=== PATIENT | female | born 2000 | race Caucasian/White ===

== ENCOUNTER 2019-04-02 12:25 | Inpatient (IN) ==
[2019-04-02] MEDS ORDERED: ONDANSETRON INJ 2 MG/ML 2 ML VIAL ONE (13:34)
[2019-04-02 13:36] LABS: Hematocrit (blood only) 30.1 % (37-47); Hemoglobin 9.6 g/dL (12.0-16.0); Mean Corpuscular Hemoglobin 26.2 pg (25-34); Mean Corpuscular Hgb Conc 31.9 g/dL (32-36); Mean Platelet Volume 8.7 fL (7.4-10.4); Platelet Count 369 K/uL (130-400); RDW Coefficient of Variation 14.8 % (11.5-14.5); RDW Standard Deviation 44.5 fL (36.4-46.3); Red Blood Count 3.67 M/uL (4.2-5.4); White Blood Count 15.18 K/uL (4.8-10.8)
[2019-04-02 13:40] LABS: Appearance Urine Cloudy (Clear); Bacteria Urine Automated Negative (Negative); Blood Urine Negative (Negative); Color Urine Dark Yellow; Epithelial Cell Urine Auto >30 /lpf (0-5); Glucose Urine UA Negative (Negative); Ketones Urine Trace (Negative); Leukocyte Esterase Urine Negative (Negative); Nitrite Urine Negative (Negative); Protein Urine Trace (Negative); Specific Gravity Urine 1.029 (1.000-1.030); Urobilinogen Urine Negative (Negative); pH Urine 5.5 (4.5-7.5)
[2019-04-02] MEDS ORDERED: SODIUM CHLORIDE 0.9% 1000ML 1,000 ML IV ONE ×2 (13:45→14:29)
[2019-04-02] MEDS: ONDANSETRON INJ 2 MG/ML 2 ML VIAL IV STA ×2 (13:46)
[2019-04-02 13:54] LABS: Bilirubin Urine Negative (Negative); Ictotest Urine Negative (Negative)
[2019-04-02 13:59] LABS: Albumin Globulin Ratio 0.5 (0.9-2); Albumin Level 2.8 gm/dl (3.4-5.0); BUN Creatinine Ratio 7.3 (10-20); Bilirubin,Total 0.3 mg/dl (0.2-1); Calcium 8.8 mg/dl (8.5-10.1); Creatinine Clr Calc Pharmacy 108.8 ml/min; Est GFR (Non-African American) 91.5; Globulin 5.8 gm/dl (2.5-4.0); Potassium 3.4 mmol/L (3.5-5.1); Total Protein 8.6 gm/dl (6.4-8.2)
[2019-04-02] MEDS ORDERED: ACETAMINOPHEN 1,000 MG/100 ML VIAL IV STA ×2 (14:10→23:09)
[2019-04-02 14:12] LABS: Pregnancy Test, Urine Negative (Negative)
[2019-04-02 14:12] LABS: Basophils # (auto) 0.04 K/uL (0-0.2); Basophils % (auto) 0.3 %; Eosinophils # (auto) 0.52 K/uL (0-0.5); Eosinophils % (auto) 3.4 %; Immature Granulocytes # (auto) 0.06 K/uL (0.00-0.02); Immature Granulocytes % (auto) 0.4 %; Lymphocytes # (auto) 6.13 K/uL (1.2-3.4); Lymphocytes % (auto) 40.4 %; Monocytes # (auto) 1.86 K/uL (0.11-0.59); Monocytes % (auto) 12.3 %; Neutrophils # (auto) 6.57 K/uL (1.4-6.5); Neutrophils % (auto) 43.2 %
[2019-04-02] MEDS ORDERED: IOVERSOL 100ml IV PRN (14:55)
--- NOTE | 2019-04-02 15:12 | CT Scan Report ---
CT abd pelvis IV con only CT DOSE: 443.17 mGy.cm HISTORY: Pain lower abd pain, diarrhea, UC hx TECHNIQUE: Multiaxial CT images of the abdomen and pelvis were performed following the use of intrave nous contrast. A dose lowering technique was utilized adhering to the principles of ALARA. COMPARISON STUDY: 02/18/2018 FINDINGS: Lung bases are clear. Liver spleen and pancreas appear unremarkable. Several very small gallstones. Wall thickening and edematous change of the descending and sigmoid colonic regions. Minimal pericolonic infiltrative change. No evidence for abscess collection or obstruction. Bowel pattern otherwise is nonobstructive. Bladder is midline. IMPRESSION: 1. Findings consistent with colitis involving the descending and sigmoid colonic regions. 2. Trace pericolonic infiltrative change, with no evidence for abscess or collection. 3. Several very small gallstones. ACT 112: Negative or not required by law. The above report was generated using voice recognition software. It may contain grammatical, syntax or spelling errors. Electronically signed by: Ruperto Hernandez M.D. 04/02/2019 3:11 PM
[2019-04-02] MEDS ORDERED: PIPERACILLIN/TAZOBACTAM 4.5 GM/120 ML BAG IV STA (15:53)
--- NOTE | 2019-04-02 16:04 | Emergency Department Note ---
Entered by Dane Lugo acting as a scribe for History of Present Illness General Chief complaint: Abdominal Pain Stated complaint: SEVERE STOMACH PAIN,FEVER ON AND OFF,DIZZY Time Seen by Provider: 04/02/19 13:58 Source: patient History of Present Illness Onset (ago): week(s) 2 Location: abdomen Severity: similar to prior episodes Pain Consistency: + constant Maximum Pain Intensity: 7 Current Pain Intensity: 6 Quality: + other (abdominal pain) Associated symptoms: + fever/chills, + loss of appetite, + nausea/vomiting (- vomiting) and + other (+pain with moving bowels; +liquid and bloody stool; - urinary symptoms; ); no cough The patient is a 18 year old female, with past medical history of ulcerative co litis, who presents to the Emergency Room with complaints of constant abdominal pain over the past couple weeks. The patient reports of pain with moving bowels lately as well, and the patient notes that she feels as if she cant completely move her bowels. The patient describes her stool as liquid and bloody. The patient also reports of a fever and feeling nauseous. The patient denies the pain radiating to her back or sides, and the patient denies issues with urination. She rates her current pain as a 6/10. The patient admits to having a viral infection 6 months ago when the patient reports that she had similar symptoms. The patient notes she just got off her medication for that viral infection 2 weeks ago. The patient also admits to being on Humira, and she states her last dose was taken on March 22. The patient also reports of a lack of appetite due to her abdominal pain. She notes she has been able to keep Gatorade and water down. She denies vomiting or experiencing cough or cold symptoms. The patient notes she reached out to her GI specialist, Dr. Del Cid, regarding symptoms. The patient states that Dr. Del Cid's office asked the patient for a stool sample, but the patient states she has not been able to provide them one yet. The patient reports that she at times will take Tylenol prior to going to bed, but the patient states that she tries not to take too much Tylenol due to her abdominal history. The patient denies prior abdominal surgeries. She states she has been diagnosed with ulcerative colitis for 5-6 years. Home Medications Home Medications Medication Instructions Recorded Confirmed Type adalimumab [Humira] 40 mg SUBCUT MONTHLY 04/02/19 04/02/19 History Allergies Allergy/AdvReac Type Severity Reaction Status Date / Time cinnamon Allergy Mild Itchy Verified 04/02/19 15:15 throat, mouth inflammed oxycodone [From OxyContin] Allergy Unconscious Verified 04/02/19 15:15 Past Med/Surg History Medical History Ulcerative colitis Surgical History History of wisdom tooth extraction (Acute) Hx of removal of cyst (Acute) Family History (Updated 04/02/19 @ 17:08 by Shakira Ni PA-C) Mother Thyroid disease Dyslipidemia Father Hypertension Dyslipidemia Other Diabetes Heart disease Social History (Updated 04/02/19 @ 17:08 by Shakira Ni PA-C) Preferred Language: Mohawk Communication Ability: Effective Visual Impairment: No Limitations Hearing Ability: Normal Manager [employer] Required: No Beliefs That Will Affect Care: None marital status: Single Current Living Situation: Other Current Living Situation Comment: [employer] current occupational status: student Other Information That Helps Us Care for You: No Feels Safe at Home: Yes Safety Concerns: Feels Safe At This Time Smoking Status: Never smoker Hx Alcohol Use: No Hx Substance Use: No Review of Systems See HPI for pertinent positives & negatives. and A total of 10 systems reviewed and were otherwise negative Physical Exam Vital Signs Vital Signs - 24 hr 04/02/19 12:33 04/02/19 13:20 04/02/19 13:25 Temperature 38.4 C H Temperature Source Oral Pulse Rate 108 H 94 H 97 H Pulse Rate from SpO2 Sensor 95 H 97 H Respiratory Rate 18 14 16 Respiratory Effort / Characteristics Non-Labored Respiratory Depth Normal Respiratory Pattern Regular Blood Pressure 108/62 115/69 Blood Pressure Mean 77 81 Pulse Oximetry 96 95 95 Oxygen Delivery Method Room Air Sepsis Recent Fever Within 48 Hours No Sepsis Action Taken by Nursing No Action Required 04/02/19 14:00 04/02/19 14:09 04/02/19 15:07 Temperature Temperature Source Pulse Rate 92 H 101 H 96 H Pulse Rate from SpO2 Sensor 92 H 100 H 97 H Respiratory Rate 14 20 14 Respiratory Effort / Characteristics Respiratory Depth Respiratory Pattern Blood Pressure 104/63 104/63 105/57 L Blood Pressure Mean 76 80 68 Pulse Oximetry 98 98 98 Oxygen Delivery Method Sepsis Recent Fever Within 48 Hours Sepsis Action Taken by Nursing 04/02/19 16:00 Temperature Temperature Source Pulse Rate 86 Pulse Rate from SpO2 Sensor 88 Respiratory Rate 16 Respiratory Effort / Characteristics Respiratory Depth Respiratory Pattern Blood Pressure 118/66 Blood Pressure Mean 83 Pulse Oximetry 98 Oxygen Delivery Method Sepsis Recent Fever Within 48 Hours Sepsis Action Taken by Nursing GENERAL: Awake, alert, uncomfortable-appearing, in no distress HENT: Normocephalic, atraumatic. EYES: Normal conjunctiva. Sclera non-icteric. RESPIRATORY: Clear to auscultation. No wheezes. Normal respiratory effort. CARDIAC: Normal rate. Normal rhythm. Extremities warm and well perfused. GI: Soft, non-distended. Lower abdomen tenderness to palpation L>R RECTAL: Deferred. MUSCULOSKELETAL: Atraumatic. Chest examination reveals no tenderness. LOWER EXTREMITIES: Calves are equal size bilaterally and non-tender. No edema NEURO: Normal sensorium. No sensory or motor deficits noted. SKIN: Warm and dry. No rash or jaundice noted. Course Course 1401: Past medical records reviewed. The patient was evaluated in room C11B. A complete history and physical exam was performed. 1600: I reevaluated and updated the patient on her case. The patient is agreeable to hospitalization. 1604: I reviewed the patient's case with Shakira Archer. Dr. Brendan Archer will evaluate the patient for further management. Consultations Consultation #1: I reviewed the patient's case with Shakira Archer. Dr. Brendan Archer will evaluate the patient for further management. Time: 16:04 Administered Medications Sodium Chloride (Nss 1000ml) 1,000 mls @ 125 mls/hr IV .Q8H ILEANA Stop: 05/02/19 18:13 Last Admin: 04/02/19 18:46 Dose: 125 mls/hr Documented by: [id number] Discontinued Medications Sodium Chloride (Nss 1000ml) 1,000 mls @ 999 mls/hr IV .Q1H1M ONE Stop: 04/02/19 14:45 Last Infusion: 04/02/19 14:42 Dose: 0 mls/hr Documented by: [id number] Admin: 04/02/19 13:46 Dose: 999 mls/hr Documented by: [id number] Acetaminophen (Ofirmev) 1,000 mg in 100 mls @ 400 mls/hr IV NOW STA Stop: 04/02/19 14:24 Last Infusion: 04/02/19 14:43 Dose: 0 mls/hr Documented by: [id number] Admin: 04/02/19 14:25 Dose: 400 mls/hr Documented by: [id number] Sodium Chloride (Nss 1000ml) 1,000 mls @ 999 mls/hr IV .Q1H1M ONE Stop: 04/02/19 15:29 Last Infusion: 04/02/19 15:44 Dose: 0 mls/hr Documented by: [id number] Admin: 04/02/19 14:54 Dose: 999 mls/hr Documented by: [id number] Piperacillin Sod/Tazobactam Sod (Zosyn) 4.5 gm in 120 mls @ 240 mls/hr IV NOW STA Stop: 04/02/19 16:22 Last Infusion: 04/02/19 16:34 Dose: 0 mls/hr Documented by: [id number] Admin: 04/02/19 15:59 Dose: 240 mls/hr Documented by: [id number] Ioversol (Optiray 320 100ml) 89 ml IV ONCE PRN PRN Reason: Interaction Checking Stop: 04/06/19 14:54 Last Admin: 04/02/19 14:56 Dose: 89 ml Documented by: [id number] Ondansetron HCl (Zofran) Confirm Administered Dose 4 mg .ROUTE .STK-MED ONE Stop: 04/02/19 13:35 Last Admin: 04/02/19 13:44 Dose: 4 mg Documented by: [id number] Ondansetron HCl (Zofran) 4 mg IV NOW STA Stop: 04/02/19 13:45 Last Admin: 04/02/19 13:46 Dose: Not Given Documented by: [id number] Potassium Chloride (Klor-Con M20) 40 meq PO NOW STA Stop: 04/02/19 18:15 Last Admin: 04/02/19 19:45 Dose: 40 meq Documented by: [id number] Medical Decision Making Differential Diagnosis Differential diagnosis: Etiologies such as appendicitis, diverticulitis, PUD, biliary pathology, UTI, pancreatitis, obstruction, mesenteric ischemia, aortic pathology, infections, i nflammatory bowel disease, renal colic, as well as others were entertained. Medical Records Attestation: I reviewed the patient's medical records. Home Medications Current Medication List: was personally reviewed by me Laboratory Data Attestation: I reviewed the patient's lab results. Result diagrams: 04/02/19 13:26 04/02/19 13:26 Lab Results 04/02/19 04/02/19 04/02/19 Range/Units 13:26 13: 13:29 WBC 15.18 H (4.8-10.8) K/uL RBC 3.67 L (4.2-5.4) M/uL Hgb 9.6 L (12.0-16.0) g/dL Hct 30.1 L (37-47) % MCV 82.0 (80-100) fL MCH 26.2 (25-34) pg MCHC 31.9 L (32-36) g/dL RDW Std Deviation 44.5 (36.4-46.3) fL RDW Coeff of [place] 14.8 H (11.5-14.5) % Plt Count 369 (130-400) K/uL MPV 8.7 (7.4-10.4) fL Immature Gran % (Auto) 0.4 % Neut % (Auto) 43.2 % Lymph % (Auto) 40.4 % [place] % (Auto) 12.3 % Eos % (Auto) 3.4 % Baso % (Auto) 0.3 % Immature Gran # (Auto) 0.06 H (0.00-0.02) K/uL Neut # (Auto) 6.57 H (1.4-6.5) K/uL Lymph # (Auto) 6.13 H (1.2-3.4) K/uL [place] # (Auto) 1.86 H (0.11-0.59) K/uL Eos # (Auto) 0.52 H (0-0.5) K/uL Baso # (Auto) 0.04 (0-0.2) K/uL ESR (0-21) mm/hr Sodium 135 L (136-145) mmol/L Potassium 3.4 L (3.5-5.1) mmol/L Chloride 106 (98-107) mmol/L Carbon Dioxide 26 (21-32) mmol/L Anion Gap 3.0 (3-11) BUN 7 (7-18) mg/dl Creatinine 0.91 (0.6-1.2) mg/dl Est Cr Clr Drug Dosing 108.8 ml/min Est GFR ( Amer) 106.0 Est GFR (Non-Af Amer) 91.5 BUN/Creatinine Ratio 7.3 L (10-20) Glucose 88 (70-99) mg/dl Lactate (0.4-2.0) mmol/L Calcium 8.8 (8.5-10.1) mg/dl Total Bilirubin 0.3 (0.2-1) mg/dl AST 18 (15-37) U/L ALT 29 (12-78) U/L Alkaline Phosphatase 89 (45-117) U/L C-Reactive Protein (0-0.29) mg/dl Total Protein 8.6 H (6.4-8.2) gm/dl Albumin 2.8 L (3.4-5.0) gm/dl Globulin 5.8 H (2.5-4.0) gm/dl Albumin/Globulin Ratio 0.5 L (0.9-2) Lipase 70 L (73-393) U/L Urine Color Dark Yellow Urine Appearance Cloudy A (Clear) Urine pH 5.5 (4.5-7.5) Ur Specific [place] 1.029 (1.000-1.030) Urine Protein Trace H (Negative) Urine Glucose (UA) Negative (Negative) Urine Ketones Trace H (Negative) Urine Blood Negative (Negative) Urine Nitrite Negative (Negative) Urine Bilirubin Negative (Negative) Urine Urobilinogen Negative (Negative) Ur Leukocyte Esterase Negative (Negative) Urine WBC (Auto) 1-5 (0-5) /hpf Urine RBC (Auto) 5-10 H (0-4) /hpf U Hyaline Cast (Auto) 10-30 H (0-5) /lpf U Epithel Cells (Auto) >30 H (0-5) /lpf Urine Bacteria (Auto) Negative (Negative) 04/02/19 04/02/19 04/02/19 Range/Units 14:20 14:20 14:31 WBC (4.8-10.8) K/uL RBC (4.2-5.4) M/uL Hgb (12.0-16.0) g/dL Hct (37-47) % MCV (80-100) fL MCH (25-34) pg MCHC (32-36) g/dL RDW Std Deviation (36.4-46.3) fL RDW Coeff of [place] (11.5-14.5) % Plt Count (130-400) K/uL MPV (7.4-10.4) fL Immature Gran % (Auto) % Neut % (Auto) % Lymph % (Auto) % [place] % (Auto) % Eos % (Auto) % Baso % (Auto) % Immature Gran # (Auto) (0.00-0.02) K/uL Neut # (Auto) (1.4-6.5) K/uL Lymph # (Auto) (1.2-3.4) K/uL [place] # (Auto) (0.11-0.59) K/uL Eos # (Auto) (0-0.5) K/uL Baso # (Auto) (0-0.2) K/uL ESR 65 H (0-21) mm/hr Sodium (136-145) mmol/L Potassium (3.5-5.1) mmol/L Chloride (98-107) mmol/L Carbon Dioxide (21-32) mmol/L Anion Gap (3-11) BUN (7-18) mg/dl Creatinine (0.6-1.2) mg/dl Est Cr Clr Drug Dosing ml/min Est GFR ( Amer) Est GFR (Non-Af Amer) BUN/Creatinine Ratio (10-20) Glucose (70-99) mg/dl Lactate 0.6 (0.4-2.0) mmol/L Calcium (8.5-10.1) mg/dl Total Bilirubin (0.2-1) mg/dl AST (15-37) U/L ALT (12-78) U/L Alkaline Phosphatase (45-117) U/L C-Reactive Protein 8.94 H (0-0.29) mg/dl Total Protein (6.4-8.2) gm/dl Albumin (3.4-5.0) gm/dl Globulin (2.5-4.0) gm/dl Albumin/Globulin Ratio (0.9-2) Lipase (73-393) U/L Urine Color Urine Appearance (Clear) Urine pH (4.5-7.5) Ur Specific [place] (1.000-1.030) Urine Protein (Negative) Urine Glucose (UA) (Negative) Urine Ketones (Negative) Urine Blood (Negative) Urine Nitrite (Negative) Urine Bilirubin (Negative) Urine Urobilinogen (Negative) Ur Leukocyte Esterase (Negative) Urine WBC (Auto) (0-5) /hpf Urine RBC (Auto) (0-4) /hpf U Hyaline Cast (Auto) (0-5) /lpf U Epithel Cells (Auto) (0-5) /lpf Urine Bacteria (Auto) (Negative) Imaging Data Radiologist's Impression: Radiology results as stated below per my review and the radiologist's interpretation: CT abd pelvis IV con only CT DOSE: 443.17 mGy.cm HISTORY: Pain lower abd pain, diarrhea, UC hx TECHNIQUE: Multiaxial CT images of the abdomen and pelvis were performed following the use of intravenous contrast. A dose lowering technique was utilized adhering to the principles of ALARA. COMPARISON STUDY: 02/18/2018 FINDINGS: Lung bases are clear. Liver spleen and pancreas appear unremarkable. Several very small gallstones. Wall thickening and edematous change of the descending and sigmoid colonic r egions. Minimal pericolonic infiltrative change. No evidence for abscess collection or obstruction. Bowel pattern otherwise is nonobstructive. Bladder is midline. IMPRESSION: 1. Findings consistent with colitis involving the descending and sigmoid colonic regions. 2. Trace pericolonic infiltrative change, with no evidence for abscess or collection. 3. Several very small gallstones. ACT 112: Negative or not required by law. The above report was generated using voice recognition software. It may contain grammatical, syntax or spelling errors. Electronically signed by: Ruperto Hernandez M.D. 04/02/2019 3:11 PM Blood Pressure Blood Pressure Findings: Low blood pressure Blood Pressure Disposition: further management by hospitalist FAINA Narrative Patient is a 18-year-old female with a past medical history including ulcerative colitis with prior disseminated CMV infection presenting here today with complaint of lower abdominal pain for approximately 1 week with some associated diarrhea. States pain is been severe. Patient's mildly tachycardic and febrile upon arrival here. Denies flulike symptoms of significance. Feels fatigued. Stopped her antiviral medication 2 weeks ago and things have worsened. Denies urinary symptoms. Lower abdominal tenderness. Having fevers which is new for her and atypical for flares. Given 2 L IV fluid and Zofran. IV Tylenol given. Broad work-up including lactate and blood culture sent. CT abdomen pelvis completed look for possible intra-abdominal pathology such as abscess or just evidence of UC. Patient has a slight leukocytosis of 15. No evidence of renal dysfunction. No evidence of acute hepatitis or pancreatitis. No evidence of UTI. C. difficile and stool studies were ordered as well. Patient's infla mmatory markers are elevated. Given the fever of concerns for possible underlying infectious pathology. Given broad-spectrum Zosyn at this point given that she is meeting sepsis criteria. Pain improved with some Tylenol. Discussed with the patient was agreement for further observation here overnight discussed with the [facility] hospitalist. Impression & Plan Colitis, Sepsis Discharge Plan Visit Data *Final* Discharge Date/Time: 04/02/19 17:45 Chief Complaint: Abdominal Pain Stated Complaint: SEVERE STOMACH PAIN,FEVER ON AND OFF,DIZZY ED Provider: Deuce Mane Discharge Problem: Colitis, Sepsis Patient Disposition: Admitted As Inpatient Discharge Instructions Interventions: ED Discharge Assessment Last Done: 04/02/19 17:45 Discharge Problem: Sepsis Qualifiers: Sepsis type: sepsis due to unspecified organism Sepsis acute organ dysfunction status: unspecified Qualified Code(s): A41.9 - Sepsis, unspecified organism The hallieibe's documentation has been prepared under my direction and personally reviewed by me in its entirety. I confirm that the note above accurately reflects all work, treatment, procedures, and medical decision making performed by me.
--- NOTE | 2019-04-02 17:00 | History & Physical Report ---
Date of Service April 02, 2019 Assessment & Plan (1) Fever: (2) Ulcerative colitis: Pt is 18 y/o F with PMH ulcerative colitis presented with c/o abdominal pain, bloody diarrhea x 11 days. Reported fever 101F x 3 days. In ER T: 38.4C, P: 108, R: 18, BP: 108/62. WBC: 15, H/H: 9.6/30 (baseline Hgb ~10-11), Na: 135, K: 3.4, Lactate: 0.6, ESR: 65, CRP: 8.9 CT ABD/PELVIS:Findings consistent with colitis involving the descending and sigmoid colonic regions. Trace pericolonic infiltrative change, with no evidence for abscess or collection. Several very small gallstones. -In ER given 2L NSS, Zosyn, Zofran, Acetaminophen -Blood culture, urine culture pending -C-diff, stool cultures pending -CMV pending -IVF -Zosyn -GI consult - spoke to Dianna SNIDER, suggest stool studies -CBC, BMP in am (3) Hypokalemia: K: 3.4 -Replace and monitor -BMP and magnesium labs in am DVT Prophylaxis -Low risk - Ambulate Pt was seen and care coordinated with Dr Hoyt. See addendum History of Present Illness Chief Complaint: Abdominal pain, fever Primary Care Provider: Debgamal Del Cid Pt is 18 y/o F with PMH ulcerative colitis presented to ER with c/o abdominal pain, diarrhea x 11 days. Pt states was having 10-15 episodes diarrhea daily with approx 3 episodes with red bloody stools. Also with lower abdominal cramping. Reports initially thought was ulcerative colitis flare however started with fever on 03/30/19 of 101F and fever has persisted. Past several days with 5- 6 episodes of diarrhea daily with some hematochezia continuing. States some rectal pain at end of having BM's. Has had decreased appetite and decreased oral intake past several days. Traveled to [place] couple of weeks ago. History hospitalization in 09/2018 for fever, rectal bleeding and was admitted at [facility] and diagnosed with CMV, pneumonia and possible tick borne illness. Reports was treated with doxycycline and IV Gancyclovir x 4 weeks then transitioned to oral valganciclovir. Imuran was discontinued at that time. Had followed with Dr Cody - ID locally also. Her CMV load was undetectable and pt started on Humira recently. Reports started Humira and reports 3rd dose was on 03/22/19. Denies ill contacts. Denies recent antibiotic use, eating undercooked foods, drinking well water. Denies diaphoresis, N/V, GARAY, dizziness, syncope, vision changes, neck pain, CP, SOB, orthopnea, palpitations, cough, sore throat, choking, otalgia, rhinorrhea, paresthesias, weakness, extremity weakness, extremity edema, rashes, urinary symptoms. Allergies Allergy/AdvReac Type Severity Reaction Status Date / Time cinnamon Allergy Mild Itchy Verified 04/02/19 15:15 throat, mouth inflammed oxycodone [From OxyContin] Allergy Unconscious Verified 04/02/19 15:15 Home Medications Home Medications Medication Instructions Recorded Confirmed Type adalimumab [Humira] 40 mg SUBCUT MONTHLY 04/02/19 04/02/19 History Past Med/Surg History Medical History Ulcerative colitis Surgical History History of wisdom tooth extraction (Acute) Hx of removal of cyst (Acute) Family History (Updated 04/02/19 @ 17:08 by Shakira Ni PA-C) Mother Thyroid disease Dyslipidemia Father Hypertension Dyslipidemia Other Diabetes Heart disease Social History (Updated 04/02/19 @ 17:08 by Shakira Ni PA-C) Preferred Language: Tuvaluan Communication Ability: Effective Visual Impairment: No Limitations Hearing Ability: Normal Pantry [employer] Required: No Beliefs That Will Affect Care: None marital status: Single Current Living Situation: Other Current Living Situation Comment: [employer] current occupational status: student Other Information That Helps Us Care for You: No Feels Safe at Home: Yes Safety Concerns: Feels Safe At This Time Smoking Status: Never smoker Hx Alcohol Use: No Hx Substance Use: No Review of Systems Review of Systems: All systems reviewed & are unremarkable except as noted in HPI & below Physical Exam Physical Exam: General: no acute distress, WDWN Head: normocephalic, atraumatic Eyes: PERRL, EOM's intact, conjunctiva non-injected, anicteric ENT: normal inspection external ears, nose, mucous membranes mildly dry Neck: supple, trachea midline, non-tender Lungs: clear, no respiratory distress, no wheezing/rhonchi/rales CV: RRR, no murmur, no pretibial edema Abd: normal BS, soft, +tender to palpation LLQ, RLQ without rebound Ext: no cyanosis, no calf tenderness Neuro: A&O x 3, no focal deficits noted, normal affect Skin: warm, dry Results & Data Vital Signs (Past 12 Hours) Vital Signs Temp Pulse Resp BP Pulse Ox 04/02/19 16:00 86 16 118/66 98 04/02/19 15:07 96 H 14 105/57 L 98 04/02/19 14:09 101 H 20 104/63 98 04/02/19 14:00 92 H 14 104/63 98 04/02/19 13:25 97 H 16 95 04/02/19 13:20 94 H 14 115/69 95 04/02/19 12:33 38.4 C H 108 H 18 108/62 96 Laboratory Results Short CBC 04/02/19 Range/Units 13:26 WBC 15.18 H (4.8-10.8) K/uL Hgb 9.6 L (12.0-16.0) g/dL Hct 30.1 L (37-47) % Plt Count 369 (130-400) K/uL BMP 04/02/19 13:26 Sodium 135 L Potassium 3.4 L Chloride 106 Carbon Dioxide 26 BUN 7 Creatinine 0.91 Glucose 88 Calcium 8.8 Liver Function 04/02/19 Range/Units 13:26 Total Bilirubin 0.3 (0.2-1) mg/dl AST 18 (15-37) U/L ALT 29 (12-78) U/L Alkaline Phosphatase 89 (45-117) U/L Albumin 2.8 L (3.4-5.0) gm/dl Urine 04/02/19 Range/Units 13:29 Urine Color Dark Yellow Urine Appearance Cloudy A (Clear) Urine pH 5.5 (4.5-7.5) Ur Specific [place] 1.029 (1.000-1.030) Urine Protein Trace H (Negative) Urine Glucose (UA) Negative (Negative) Diagnostic Findings CT ABD/PELVIS: IMPRESSION: 1. Findings consistent with colitis involving the descending and sigmoid colonic regions. 2. Trace pericolonic infiltrative change, with no evidence for abscess or collection. 3. Several very small gallstones. Supervising Physician Co-Signing Physician Notes I, Mathieu Steve, have seen and examined the patient with physician retail sales assistant and agree with the assessment and plan as above and would like to comment that On physical exam General: no acute distress Heart: regular rate and rhythm Lungs: clear to auscultation bilaterally Abdomen: soft, nontender, positive bowel sounds Extremities: no edema FEVER Ulcerative Colitis History of Cytomegalovirus (CMV) infection in the past -this is a patient with ulcerative colitis and presents with gastrointestinal symptoms and fevers at home and found to have fever with leukocytosis on admission -CT abdomen Findings consistent with colitis involving the descending and sigmoid colonic regions. Trace pericolonic infiltrative change, with no evidence for abscess or collection. -ED started empiricially of broad spectrum antibiotics of Zosyn which is being continued -stool studies are pending -if no evidence of C.difficile then IV antibiotics can be safely continued -will defer to gastroneterology if any colonoscopy needed or gastro-intestinal tract anti-inflammatories. will keep clear liquid diet for now and NPO after midnight -history of Cytomegalovirus (CMV) infection in the past, follow viral studies which are send out reference labs My colleague Dr. King will be following the patient starting on 04/03/2019
[2019-04-02] MEDS ORDERED: ACETAMINOPHEN 325 MG TAB PO PRN (18:14)
[2019-04-02] MEDS ORDERED: POTASSIUM CHLORIDE 20 MEQ TABCR PO STA (18:14)
[2019-04-02] MEDS ORDERED: ONDANSETRON INJ 2 MG/ML 2 ML VIAL IV PRN (18:14)
[2019-04-02] MEDS ORDERED: PIPERACILL/TAZOBAC CONSULT ACTIVE PRN (18:26)
[2019-04-02] MEDS: SODIUM CHLORIDE 0.9% 1000ML 1,000 ML IV SCH (18:46)
[2019-04-02] MEDS: PIPERACILLIN/TAZOBACTAM 3.375 GM in DEXTROSE 5% 100 ML IV SCH (21:58)
[2019-04-03] MEDS: SODIUM CHLORIDE 0.9% 1000ML 1,000 ML IV SCH ×3 (02:47→21:36)
[2019-04-03 06:00] LABS: Basophils # (auto) 0.03 K/uL (0-0.2); Basophils % (auto) 0.3 %; Eosinophils # (auto) 0.42 K/uL (0-0.5); Eosinophils % (auto) 3.5 %; Hematocrit (blood only) 26.7 % (37-47); Hemoglobin 8.5 g/dL (12.0-16.0); Immature Granulocytes # (auto) 0.05 K/uL (0.00-0.02); Immature Granulocytes % (auto) 0.4 %; Lymphocytes # (auto) 4.72 K/uL (1.2-3.4); Lymphocytes % (auto) 39.7 %; Mean Corpuscular Hemoglobin 26.3 pg (25-34); Mean Corpuscular Hgb Conc 31.8 g/dL (32-36); Mean Corpuscular Volume 82.7 fL (80-100); Mean Platelet Volume 8.6 fL (7.4-10.4); Monocytes # (auto) 1.65 K/uL (0.11-0.59); Monocytes % (auto) 13.9 %; Neutrophils # (auto) 5.03 K/uL (1.4-6.5); Neutrophils % (auto) 42.2 %; Platelet Count 313 K/uL (130-400); RDW Coefficient of Variation 14.7 % (11.5-14.5); RDW Standard Deviation 44.5 fL (36.4-46.3); Red Blood Count 3.23 M/uL (4.2-5.4)
[2019-04-03] MEDS: PIPERACILLIN/TAZOBACTAM 3.375 GM in DEXTROSE 5% 100 ML IV SCH ×3 (06:04→21:36)
[2019-04-03] MEDS: ACETAMINOPHEN 1,000 MG/100 ML VIAL IV PRN ×2 (06:18→18:40)
[2019-04-03 06:39] LABS: BUN Creatinine Ratio 6.8 (10-20); Calcium 7.9 mg/dl (8.5-10.1); Creatinine Clr Calc Pharmacy 133.8 ml/min; Est GFR (African American) 136.1; Est GFR (Non-African American) 117.4; Potassium 3.9 mmol/L (3.5-5.1)
--- NOTE | 2019-04-03 07:57 | Hospitalist Progress Note ---
Date of Service April 03, 2019 Assessment & Plan (1) Fever: (2) Ulcerative colitis: SIRS criteria met on admission, poss. d/t UC flair Concern for Sepsis due to possible infectious colitis in the setting of UC- recent h/o CMV infection Pt is 18 y/o F with PMH ulcerative colitis presented with c/o abdominal pain, bloody diarrhea x 11 days. Reported fever 101F x 3 days. In ER T: 38.4C, P: 108, R: 18, BP: 108/62. WBC: 15, H/H: 9.6/30 (baseline Hgb ~10-11), Na: 135, K: 3.4, Lactate: 0.6, ESR: 65, CRP: 8.9 CT ABD/PELVIS:Findings consistent with colitis involving the descending and sigmoid colonic regions. Trace pericolonic infiltrative change, with no evidence for abscess or collection. Several very small gallstones. -In ER given 2L NSS, Zosyn, Zofran, Acetaminophen -Blood culture, urine culture pending GI consulted -C-diff - negative, started on IV solumedrol for UC flair by GI - stool cultures pending -CMV pending -clear liquid diet,IVF -cont. Zosyn, ID consulted for recent h/o of CMV -GI consult - spoke to Dianna SNIDER, suggest stool studies, clear liquid diet, ID consult for h/o CMV -monitor CBC, BMP in am (3) Hypokalemia: K: 3.4 -Replace and monitor -BMP and magnesium labs in am DVT Prophylaxis -Low risk - Ambulate Subjective Patient sitting up in bed, in no acute distress, continues to complain of subjective fevers and has loose stools about 5-6 a day. Denies any chest pain, shortness of breath, nausea or vomiting. Review of Systems Review of Systems: All systems reviewed & are unremarkable except as noted in HPI & below Constitutional: + fever; no chills Respiratory: + cough (dry); no dyspnea Cardiovascular: no chest pain, no palpitations and no edema Gastrointestinal: + abdominal pain, + diarrhea/loose stools and + blood in stools; no nausea and no vomiting Physical Exam Physical Exam: General: Young female sitting up in bed, in no acute distress, WDWN Head: normocephalic, atraumatic Eyes: PERRL, EOM's intact, conjunctiva non-injected, anicteric ENT: normal inspection external ears, nose, mucous membranes mildly dry Neck: supple, trachea midline, non-tender Lungs: clear, no respiratory distress, no wheezing/rhonchi/rales CV: RRR, no murmur, no pretibial edema Abd: normal BS, soft, +tender to palpation LLQ, RLQ without rebound Ext: no cyanosis, no calf tenderness, moves extremities spontaneously Neuro: A&O x 3, no focal deficits noted, normal affect, no facial asymmetry, speech fluent, moves extremities spontaneously Skin: warm, dry Results & Data Vital Signs (Past 12 Hours) Vital Signs Temp Pulse Resp BP BP Pulse Ox 04/03/19 07:15 37.5 C 97 H 18 86/54 L 95 04/03/19 01:00 37.6 C H 04/02/19 22:32 38.9 C H 105 H 18 118/75 100 Laboratory Results 04/03/19 04/03/19 04/02/19 Range/Units 05:36 05:36 Unknown WBC 11.90 H (4.8-10.8) K/uL RBC 3.23 L (4.2-5.4) M/uL Hgb 8.5 L (12.0-16.0) g/dL Hct 26.7 L (37-47) % MCV 82.7 (80-100) fL MCH 26.3 (25-34) pg MCHC 31.8 L (32-36) g/dL RDW Std Deviation 44.5 (36.4-46.3) fL RDW Coeff of [place] 14.7 H (11.5-14.5) % Plt Count 313 (130-400) K/uL MPV 8.6 (7.4-10.4) fL Immature Gran % (Auto) 0.4 % Neut % (Auto) 42.2 % Lymph % (Auto) 39.7 % [place] % (Auto) 13.9 % Eos % (Auto) 3.5 % Baso % (Auto) 0.3 % Immature Gran # (Auto) 0.05 H (0.00-0.02) K/uL Neut # (Auto) 5.03 (1.4-6.5) K/uL Lymph # (Auto) 4.72 H (1.2-3.4) K/uL [place] # (Auto) 1.65 H (0.11-0.59) K/uL Eos # (Auto) 0.42 (0-0.5) K/uL Baso # (Auto) 0.03 (0-0.2) K/uL ESR (0-21) mm/hr Sodium 138 (136-145) mmol/L Potassium 3.9 (3.5-5.1) mmol/L Chloride 111 H (98-107) mmol/L Carbon Dioxide 23 (21-32) mmol/L Anion Gap 4.0 (3-11) BUN 5 L (7-18) mg/dl Creatinine 0.74 (0.6-1.2) mg/dl Est Cr Clr Drug Dosing 133.8 ml/min Est GFR ( Amer) 136.1 Est GFR (Non-Af Amer) 117.4 BUN/Creatinine Ratio 6.8 L (10-20) Glucose 82 (70-99) mg/dl Lactate (0.4-2.0) mmol/L Calcium 7.9 L (8.5-10.1) mg/dl Magnesium 2.0 (1.8-2.4) mg/dl Total Bilirubin (0.2-1) mg/dl AST (15-37) U/L ALT (12-78) U/L Alkaline Phosphatase (45-117) U/L C-Reactive Protein (0-0.29) mg/dl Total Protein (6.4-8.2) gm/dl Albumin (3.4-5.0) gm/dl Globulin (2.5-4.0) gm/dl Albumin/Globulin Ratio (0.9-2) Lipase (73-393) U/L Urine Color Urine Appearance (Clear) Urine pH (4.5-7.5) Ur Specific [place] (1.000-1.030) Urine Protein (Negative) Urine Glucose (UA) (Negative) Urine Ketones (Negative) Urine Blood (Negative) Urine Nitrite (Negative) Urine Bilirubin (Negative) Urine Urobilinogen (Negative) Ur Leukocyte Esterase (Negative) Urine WBC (Auto) (0-5) /hpf Urine RBC (Auto) (0-4) /hpf U Hyaline Cast (Auto) (0-5) /lpf U Epithel Cells (Auto) (0-5) /lpf Urine Bacteria (Auto) (Negative) Urine Test Negative (Negative) Stl C. diff Tox B Gene (Neg) CMV Specimen Source CMV Qnt PCR IU/mL CMV Qnt PCR log IU/mL 04/02/19 04/02/19 04/02/19 Range/Units 23:55 14:31 14:20 WBC (4.8-10.8) K/uL RBC (4.2-5.4) M/uL Hgb (12.0-16.0) g/dL Hct (37-47) % MCV (80-100) fL MCH (25-34) pg MCHC (32-36) g/dL RDW Std Deviation (36.4-46.3) fL RDW Coeff of [place] (11.5-14.5) % Plt Count (130-400) K/uL MPV (7.4-10.4) fL Immature Gran % (Auto) % Neut % (Auto) % Lymph % (Auto) % [place] % (Auto) % Eos % (Auto) % Baso % (Auto) % Immature Gran # (Auto) (0.00-0.02) K/uL Neut # (Auto) (1.4-6.5) K/uL Lymph # (Auto) (1.2-3.4) K/uL [place] # (Auto) (0.11-0.59) K/uL Eos # (Auto) (0-0.5) K/uL Baso # (Auto) (0-0.2) K/uL ESR (0-21) mm/hr Sodium (136-145) mmol/L Potassium (3.5-5.1) mmol/L Chloride (98-107) mmol/L Carbon Dioxide (21-32) mmol/L Anion Gap (3-11) BUN (7-18) mg/dl Creatinine (0.6-1.2) mg/dl Est Cr Clr Drug Dosing ml/min Est GFR ( Amer) Est GFR (Non-Af Amer) BUN/Creatinine Ratio (10-20) Glucose (70-99) mg/dl Lactate 0.6 (0.4-2.0) mmol/L Calcium (8.5-10.1) mg/dl Magnesium (1.8-2.4) mg/dl Total Bilirubin (0.2-1) mg/dl AST (15-37) U/L ALT (12-78) U/L Alkaline Phosphatase (45-117) U/L C-Reactive Protein 8.94 H (0-0.29) mg/dl Total Protein (6.4-8.2) gm/dl Albumin (3.4-5.0) gm/dl Globulin (2.5-4.0) gm/dl Albumin/Globulin Ratio (0.9-2) Lipase (73-393) U/L Urine Color Urine Appearance (Clear) Urine pH (4.5-7.5) Ur Specific [place] (1.000-1.030) Urine Protein (Negative) Urine Glucose (UA) (Negative) Urine Ketones (Negative) Urine Blood (Negative) Urine Nitrite (Negative) Urine Bilirubin (Negative) Urine Urobilinogen (Negative) Ur Leukocyte Esterase (Negative) Urine WBC (Auto) (0-5) /hpf Urine RBC (Auto) (0-4) /hpf U Hyaline Cast (Auto) (0-5) /lpf U Epithel Cells (Auto) (0-5) /lpf Urine Bacteria (Auto) (Negative) Urine Test (Negative) Stl C. diff Tox B Gene Negative Cdiff Gene (Neg) CMV Specimen Source CMV Qnt PCR IU/mL CMV Qnt PCR log IU/mL 04/02/19 04/02/19 04/02/19 Range/Units 14:20 14:20 13:29 WBC (4.8-10.8) K/uL RBC (4.2-5.4) M/uL Hgb (12.0-16.0) g/dL Hct (37-47) % MCV (80-100) fL MCH (25-34) pg MCHC (32-36) g/dL RDW Std Deviation (36.4-46.3) fL RDW Coeff of [place] (11.5-14.5) % Plt Count (130-400) K/uL MPV (7.4-10.4) fL Immature Gran % (Auto) % Neut % (Auto) % Lymph % (Auto) % [place] % (Auto) % Eos % (Auto) % Baso % (Auto) % Immature Gran # (Auto) (0.00-0.02) K/uL Neut # (Auto) (1.4-6.5) K/uL Lymph # (Auto) (1.2-3.4) K/uL [place] # (Auto) (0.11-0.59) K/uL Eos # (Auto) (0-0.5) K/uL Baso # (Auto) (0-0.2) K/uL ESR 65 H (0-21) mm/hr Sodium (136-145) mmol/L Potassium (3.5-5.1) mmol/L Chloride (98-107) mmol/L Carbon Dioxide (21-32) mmol/L Anion Gap (3-11) BUN (7-18) mg/dl Creatinine (0.6-1.2) mg/dl Est Cr Clr Drug Dosing ml/min Est GFR ( Amer) Est GFR (Non-Af Amer) BUN/Creatinine Ratio (10-20) Glucose (70-99) mg/dl Lactate (0.4-2.0) mmol/L Calcium (8.5-10.1) mg/dl Magnesium (1.8-2.4) mg/dl Total Bilirubin (0.2-1) mg/dl AST (15-37) U/L ALT (12-78) U/L Alkaline Phosphatase (45-117) U/L C-Reactive Protein (0-0.29) mg/dl Total Protein (6.4-8.2) gm/dl Albumin (3.4-5.0) gm/dl Globulin (2.5-4.0) gm/dl Albumin/Globulin Ratio (0.9-2) Lipase (73-393) U/L Urine Color Dark Yellow Urine Appearance Cloudy A (Clear) Urine pH 5.5 (4.5-7.5) Ur Specific [place] 1.029 (1.000-1.030) Urine Protein Trace H (Negative) Urine Glucose (UA) Negative (Negative) Urine Ketones Trace H (Negative) Urine Blood Negative (Negative) Urine Nitrite Negative (Negative) Urine Bilirubin Negative (Negative) Urine Urobilinogen Negative (Negative) Ur Leukocyte Esterase Negative (Negative) Urine WBC (Auto) 1-5 (0-5) /hpf Urine RBC (Auto) 5-10 H (0-4) /hpf U Hyaline Cast (Auto) 10-30 H (0-5) /lpf U Epithel Cells (Auto) >30 H (0-5) /lpf Urine Bacteria (Auto) Negative (Negative) Urine Test (Negative) Stl C. diff Tox B Gene (Neg) CMV Specimen Source Pending CMV Qnt PCR IU/mL Pending CMV Qnt PCR log IU/mL Pending 04/02/19 04/02/19 Range/Units 13:26 13:26 WBC 15.18 H (4.8-10.8) K/uL RBC 3.67 L (4.2-5.4) M/uL Hgb 9.6 L (12.0-16.0) g/dL Hct 30.1 L (37-47) % MCV 82.0 (80-100) fL MCH 26.2 (25-34) pg MCHC 31.9 L (32-36) g/dL RDW Std Deviation 44.5 (36.4-46.3) fL RDW Coeff of [place] 14.8 H (11.5-14.5) % Plt Count 369 (130-400) K/uL MPV 8.7 (7.4-10.4) fL Immature Gran % (Auto) 0.4 % Neut % (Auto) 43.2 % Lymph % (Auto) 40.4 % [place] % (Auto) 12.3 % Eos % (Auto) 3.4 % Baso % (Auto) 0.3 % Immature Gran # (Auto) 0.06 H (0.00-0.02) K/uL Neut # (Auto) 6.57 H (1.4-6.5) K/uL Lymph # (Auto) 6.13 H (1.2-3.4) K/uL [place] # (Auto) 1.86 H (0.11-0.59) K/uL Eos # (Auto) 0.52 H (0-0.5) K/uL Baso # (Auto) 0.04 (0-0.2) K/uL ESR (0-21) mm/hr Sodium 135 L (136-145) mmol/L Potassium 3.4 L (3.5-5.1) mmol/L Chloride 106 (98-107) mmol/L Carbon Dioxide 26 (21-32) mmol/L Anion Gap 3.0 (3-11) BUN 7 (7-18) mg/dl Creatinine 0.91 (0.6-1.2) mg/dl Est Cr Clr Drug Dosing 108.8 ml/min Est GFR ( Amer) 106.0 Est GFR (Non-Af Amer) 91.5 BUN/Creatinine Ratio 7.3 L (10-20) Glucose 88 (70-99) mg/dl Lactate (0.4-2.0) mmol/L Calcium 8.8 (8.5-10.1) mg/dl Magnesium (1.8-2.4) mg/dl Total Bilirubin 0.3 (0.2-1) mg/dl AST 18 (15-37) U/L ALT 29 (12-78) U/L Alkaline Phosphatase 89 (45-117) U/L C-Reactive Protein (0-0.29) mg/dl Total Protein 8.6 H (6.4-8.2) gm/dl Albumin 2.8 L (3.4-5.0) gm/dl Globulin 5.8 H (2.5-4.0) gm/dl Albumin/Globulin Ratio 0.5 L (0.9-2) Lipase 70 L (73-393) U/L Urine Color Urine Appearance (Clear) Urine pH (4.5-7.5) Ur Specific [place] (1.000-1.030) Urine Protein (Negative) Urine Glucose (UA) (Negative) Urine Ketones (Negative) Urine Blood (Negative) Urine Nitrite (Negative) Urine Bilirubin (Negative) Urine Urobilinogen (Negative) Ur Leukocyte Esterase (Negative) Urine WBC (Auto) (0-5) /hpf Urine RBC (Auto) (0-4) /hpf U Hyaline Cast (Auto) (0-5) /lpf U Epithel Cells (Auto) (0-5) /lpf Urine Bacteria (Auto) (Negative) Urine Test (Negative) Stl C. diff Tox B Gene (Neg) CMV Specimen Source CMV Qnt PCR IU/mL CMV Qnt PCR log IU/mL Medications Administered Current Inpatient Medications Sodium Chloride (Nss 1000ml) 1,000 mls @ 125 mls/hr IV .Q8H ILEANA Stop: 05/02/19 18:13 Last Admin: 04/03/19 02:47 Dose: 125 mls/hr Documented by: Piperacillin Sod/Tazobactam (Sod 3.375 gm/ Dextrose) 115 mls @ 28.75 mls/hr IV Q8H ILEANA; Protocol Stop: 04/12/19 21:59 Last Admin: 04/03/19 06:04 Dose: 28.8 mls/hr Documented by: Acetaminophen (Ofirmev) 1,000 mg in 100 mls @ 400 mls/hr IV Q8H PRN PRN Reason: Fever Stop: 04/05/19 23:09 Last Infusion: 04/03/19 06:33 Dose: Infused Documented by: Miscellaneous Information (Consult) 1 ea N/A UD PRN PRN Reason: Consult Stop: 05/02/19 18:25 Ondansetron HCl (Zofran) 4 mg IV Q6H PRN PRN Reason: Nausea Stop: 05/02/19 18:13
[2019-04-03] MEDS ORDERED: methylPREDNISolone 40 MG in SYRINGE 0 ML IV STA (10:52)
--- NOTE | 2019-04-03 12:34 | Infectious Disease Consult ---
Date of Consultation April 03, 2019 Assessment & Plan (1) Colitis: DDX: UC flare, GI translocation, bacerial colitis, CMV - has been off of suppressive antiviral. Agree with zosyn pending culture results. would suggest restarting ganciclovir pending CMV quant, if negative would then place back on valganciclovir 900mg daily. She should have routine f/u with ID - currently following with [facility] [place]/c. History of Present Illness Attending Physician: Matheus Richard MD pt admitted with 11 days of abd pain, diarrhea. has UC, recently changed to Humira, last dose 03/22, states she has had several flares of UC on this and does not feel it is working well. abd ct showed sigmoid colitis. also having f/c at home, tmax 38.9. she was placed emperically on zosyn, tolerating well. wbc intially 15, now 11. ESR 65, creat 0.7, UA negative, c diff negative. Blood and urine cultures pending. 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 + abd pain, no cp, sob, cough, blevins. She is from [facility], over summer break she was hospi talized at [facility] for CMV and treated with 4 weeks of IV ganciclovir, tolerated well, clinically improved. she saw Dr. Cody on 11/25, was placed on director long term care valganciclovir 900mg daily, she was to return in December for followup but has not returned for ID visit. she states in January she saw ID at [facility] and they suggested the same, she was on valganciclovir and tolerating well but states her rx ran out in late January, she did not notify either [facility] ID or [facility] ID and has been off of her antiviral since then. CMV quant pending, ID consulted for h/o CMV Allergies Allergy/AdvReac Type Severity Reaction Status Date / Time cinnamon Allergy Mild Itchy Verified 04/02/19 15:15 throat, mouth inflammed oxycodone [From OxyContin] Allergy Unconscious Verified 04/02/19 15:15 Home Medications Home Medications Medication Instructions Recorded Confirmed Type adalimumab [Humira] 40 mg SUBCUT MONTHLY 04/02/19 04/02/19 History Patient History Medical History Ulcerative colitis Surgical History History of wisdom tooth extraction (Acute) Hx of removal of cyst (Acute) Family History Mother Thyroid disease Dyslipidemia Father Hypertension Dyslipidemia Other Diabetes Heart disease Social History Preferred Language: Swedish Communication Ability: Effective Visual Impairment: No Limitations Hearing Ability: Normal Pier Hand Helper Required: No Beliefs That Will Affect Care: None marital status: Single Current Living Situation: Other Current Living Situation Comment: [employer] current occupational status: student Other Information That Helps Us Care for You: No Feels Safe at Home: Yes Safety Concerns: Feels Safe At This Time Smoking Status: Never smoker Hx Alcohol Use: No Hx Substance Use: No Review of Systems Review of Systems: All systems reviewed & are unremarkable except as noted in HPI & below Physical Exam Constitutional: WD/WN, vitals as above Eyes: PERRL, conjunctivae normal, anicteric sclerae ENMT: external ear and nose normal, oropharynx normal Neck: normal visual inspection Respiratory: normal respiratory effort, lungs clear to auscultation Cardiovascular: RRR, no murmur, no edema Gastrointestinal (Abdomen): Inspection/Auscultation: abdomen normal to inspection and normal bowel sounds; abdomen not distended Percussion/Palpatio n: + abdomen tender and abdomen soft; no guarding and abdomen not rigid Musculoskeletal: no cyanosis or clubbing, extremities motor strength 5/5 Skin: no rashes, warm and dry Psychiatric: A+Ox3, euthymic affect Results & Data Vital Signs (Past 12 Hours) Vital Signs Temp Pulse Resp BP Pulse Ox 04/03/19 07:15 37.5 C 97 H 18 86/54 L 95 04/03/19 01:00 37.6 C H PG Care Time/CCT Total # of Minutes Spent Total Time Spent with Patient: Total time spent is greater than 50% in coordination of care (as documented) at patient's floor/unit and/or counseling patient:
--- NOTE | 2019-04-03 12:52 | Gastrointestinal Consultation ---
Date of Consultation April 03, 2019 Assessment & Plan (1) Ulcerative colitis: 18 y/o female with h/o UC, recent CMV infection, admitted yesterday with abd pain, bloody diarrhea, leukocytosis concerning for sepsis - C. diff negative, likely flare given interruption in immunosuppressive tx - Will start IV steroids with Solu-medrol 40 mg - Continue supportive care with IVF, analgesia PRN - Trend CBC, BMP - Can start clear liquids today as tolerated - ABX coverage as per primary service, await BC (2) Colitis: (3) History of cytomegalovirus infection: - As per ID recommendations, pt states to me she feels like she did when she had active CMV Supervising Physician Co-Signing Physician Notes Late entry: Patient was seen and examined on 04/03 with Ginette George PA-C whose note reflects our findings and plan. IBD with recent CMV infection treated. Back on biologic for short time. Admitted with flare symptoms. Check stool cultures. If negative, start IV steroids. ID consult pending. History of Present Illness Attending Physician: Matheus Richard MD History of Present Illness Pt is a 18 y/o female with hx of ileocolonic inflammatory Ulcerative colitis disease, h/o tx for CMV infection; was hospitalized this summer at [facility] and tx with 4 weeks of IV gangiclovir, transitioned to long-term valganciclovir though her rx ran out in January and she didn't f/u with ID. Re: her UC, she had been off IBD specific tx until recently; her most recent dose of Humira was 1/4. Admitted yesterday for > 10 days of abd pain, bloody diarrhea, fever. WBC on admission 15; no 11. ESR 65. Normal renal fxn. Placed empirically on Zosyn. Today feeling about the same; bowels moving approx 5 x daily; having intermittent lower abd cramping; appetite somewhat diminished; intermittent fevers. C. diff neg. CTAP with findings consistent with colitis involving the descending and sigmoid colonic regions Allergies Allergy/AdvReac Type Severity Reaction Status Date / Time cinnamon Allergy Mild Itchy Verified 04/02/19 15:15 throat, mouth inflammed oxycodone [From OxyContin] Allergy Unconscious Verified 04/02/19 15:15 Home Medications Home Medications Medication Instructions Recorded Confirmed Type adalimumab [Humira] 40 mg SUBCUT MONTHLY 04/02/19 04/02/19 History Patient History Medical History Ulcerative colitis Surgical History History of wisdom tooth extraction (Acute) Hx of removal of cyst (Acute) Family History Mother Thyroid disease Dyslipidemia Father Hypertension Dyslipidemia Other Diabetes Heart disease Social History Preferred Language: Libyan Communication Ability: Effective Visual Impairment: No Limitations Hearing Ability: Normal Health Facilities Surveyor Required: No Beliefs That Will Affect Care: None marital status: Single Current Living Situation: Other Current Living Situation Comment: [employer] current occupational status: student Other Information That Helps Us Care for You: No Feels Safe at Home: Yes Safety Concerns: Feels Safe At This Time Smoking Status: Never smoker Hx Alcohol Use: No Hx Substance Use: No Review of Systems Constitutional: + fever and + anorexia Eyes: No red eyes, eye pain Respiratory: no cough and no chest congestion Cardiovascular: no chest pain and no edema Gastrointestinal: as per Subjective / HPI Genitourinary: no dysuria, no urinary frequency and no hematuria Physical Exam Constitutional: WD/WN, vitals as above Eyes: + anicteric sclerae Respiratory: normal respiratory effort, lungs clear to auscultation Cardiovascular: RRR, no murmur, no edema Gastrointestinal (Abdomen): Inspection/Auscultation: abdomen normal to inspection; abdomen not distended Percussion/Palpation: + abdomen tender (+ RLQ, LLQ tenderness, no rebound, guarding ) and abdomen soft Skin: no rashes, warm and dry Psychiatric: A+Ox3, euthymic affect Results & Data Vital Signs (Past 12 Hours) Vital Signs Temp Pulse Resp BP Pulse Ox 04/03/19 07:15 37.5 C 97 H 18 86/54 L 95 04/03/19 01:00 37.6 C H Laboratory Results 04/03/19 04/03/19 04/02/19 Range/Units 05:36 05:36 Unknown WBC 11.90 H (4.8-10.8) K/uL RBC 3.23 L (4.2-5.4) M/uL Hgb 8.5 L (12.0-16.0) g/dL Hct 26.7 L (37-47) % MCV 82.7 (80-100) fL MCH 26.3 (25-34) pg MCHC 31.8 L (32-36) g/dL RDW Std Deviation 44.5 (36.4-46.3) fL RDW Coeff of [place] 14.7 H (11.5-14.5) % Plt Count 313 (130-400) K/uL MPV 8.6 (7.4-10.4) fL Immature Gran % (Auto) 0.4 % Neut % (Auto) 42.2 % Lymph % (Auto) 39.7 % [place] % (Auto) 13.9 % Eos % (Auto) 3.5 % Baso % (Auto) 0.3 % Immature Gran # (Auto) 0.05 H (0.00-0.02) K/uL Neut # (Auto) 5.03 (1.4-6.5) K/uL Lymph # (Auto) 4.72 H (1.2-3.4) K/uL [place] # (Auto) 1.65 H (0.11-0.59) K/uL Eos # (Auto) 0.42 (0-0.5) K/uL Baso # (Auto) 0.03 (0-0.2) K/uL ESR (0-21) mm/hr Sodium 138 (136-145) mmol/L Potassium 3.9 (3.5-5.1) mmol/L Chloride 111 H (98-107) mmol/L Carbon Dioxide 23 (21-32) mmol/L Anion Gap 4.0 (3-11) BUN 5 L (7-18) mg/dl Creatinine 0.74 (0.6-1.2) mg/dl Est Cr Clr Drug Dosing 133.8 ml/min Est GFR ( Amer) 136.1 Est GFR (Non-Af Amer) 117.4 BUN/Creatinine Ratio 6.8 L (10-20) Glucose 82 (70-99) mg/dl Lactate (0.4-2.0) mmol/L Calcium 7.9 L (8.5-10.1) mg/dl Magnesium 2.0 (1.8-2.4) mg/dl Total Bilirubin (0.2-1) mg/dl AST (15-37) U/L ALT (12-78) U/L Alkaline Phosphatase (45-117) U/L C-Reactive Protein (0-0.29) mg/dl Total Protein (6.4-8.2) gm/dl Albumin (3.4-5.0) gm/dl Globulin (2.5-4.0) gm/dl Albumin/Globulin Ratio (0.9-2) Lipase (73-393) U/L Urine Color Urine Appearance (Clear) Urine pH (4.5-7.5) Ur Specific Iva (1.000-1.030) Urine Protein (Negative) Urine Glucose (UA) (Negative) Urine Ketones (Negative) Urine Blood (Negative) Urine Nitrite (Negative) Urine Bilirubin (Negative) Urine Urobilinogen (Negative) Ur Leukocyte Esterase (Negative) Urine WBC (Auto) (0-5) /hpf Urine RBC (Auto) (0-4) /hpf U Hyaline Cast (Auto) (0-5) /lpf U Epithel Cells (Auto) (0-5) /lpf Urine Bacteria (Auto) (Negative) Urine Test Negative (Negative) Stl C. diff Tox B Gene (Neg) CMV Specimen Source CMV Qnt PCR IU/mL CMV Qnt PCR log IU/mL 04/02/19 04/02/19 04/02/19 Range/Units 23:55 14:31 14:20 WBC (4.8-10.8) K/uL RBC (4.2-5.4) M/uL Hgb (12.0-16.0) g/dL Hct (37-47) % MCV (80-100) fL MCH (25-34) pg MCHC (32-36) g/dL RDW Std Deviation (36.4-46.3) fL RDW Coeff of [place] (11.5-14.5) % Plt Count (130-400) K/uL MPV (7.4-10.4) fL Immature Gran % (Auto) % Neut % (Auto) % Lymph % (Auto) % [place] % (Auto) % Eos % (Auto) % Baso % (Auto) % Immature Gran # (Auto) (0.00-0.02) K/uL Neut # (Auto) (1.4-6.5) K/uL Lymph # (Auto) (1.2-3.4) K/uL [place] # (Auto) (0.11-0.59) K/uL Eos # (Auto) (0-0.5) K/uL Baso # (Auto) (0-0.2) K/uL ESR (0-21) mm/hr Sodium (136-145) mmol/L Potassium (3.5-5.1) mmol/L Chloride (98-107) mmol/L Carbon Dioxide (21-32) mmol/L Anion Gap (3-11) BUN (7-18) mg/dl Creatinine (0.6-1.2) mg/dl Est Cr Clr Drug Dosing ml/min Est GFR ( Amer) Est GFR (Non-Af Amer) BUN/Creatinine Ratio (10-20) Glucose (70-99) mg/dl Lactate 0.6 (0.4-2.0) mmol/L Calcium (8.5-10.1) mg/dl Magnesium (1.8-2.4) mg/dl Total Bilirubin (0.2-1) mg/dl AST (15-37) U/L ALT (12-78) U/L Alkaline Phosphatase (45-117) U/L C-Reactive Protein 8.94 H (0-0.29) mg/dl Total Protein (6.4-8.2) gm/dl Albumin (3.4-5.0) gm/dl Globulin (2.5-4.0) gm/dl Albumin/Globulin Ratio (0.9-2) Lipase (73-393) U/L Urine Color Urine Appearance (Clear) Urine pH (4.5-7.5) Ur Specific [place]va (1.000-1.030) Urine Protein (Negative) Urine Glucose (UA) (Negative) Urine Ketones (Negative) Urine Blood (Negative) Urine Nitrite (Negative) Urine Bilirubin (Negative) Urine Urobilinogen (Negative) Ur Leukocyte Esterase (Negative) Urine WBC (Auto) (0-5) /hpf Urine RBC (Auto) (0-4) /hpf U Hyaline Cast (Auto) (0-5) /lpf U Epithel Cells (Auto) (0-5) /lpf Urine Bacteria (Auto) (Negative) Urine Test (Negative) Stl C. diff Tox B Gene Negative Cdiff Gene (Neg) CMV Specimen Source CMV Qnt PCR IU/mL CMV Qnt PCR log IU/mL 04/02/19 04/02/19 04/02/19 Range/Units 14:20 14:20 13:29 WBC (4.8-10.8) K/uL RBC (4.2-5.4) M/uL Hgb (12.0-16.0) g/dL Hct (37-47) % MCV (80-100) fL MCH (25-34) pg MCHC (32-36) g/dL RDW Std Deviation (36.4-46.3) fL RDW Coeff of [place] (11.5-14.5) % Plt Count (130-400) K/uL MPV (7.4-10.4) fL Immature Gran % (Auto) % Neut % (Auto) % Lymph % (Auto) % [place] % (Auto) % Eos % (Auto) % Baso % (Auto) % Immature Gran # (Auto) (0.00-0.02) K/uL Neut # (Auto) (1.4-6.5) K/uL Lymph # (Auto) (1.2-3.4) K/uL [place] # (Auto) (0.11-0.59) K/uL Eos # (Auto) (0-0.5) K/uL Baso # (Auto) (0-0.2) K/uL ESR 65 H (0-21) mm/hr Sodium (136-145) mmol/L Potassium (3.5-5.1) mmol/L Chloride (98-107) mmol/L Carbon Dioxide (21-32) mmol/L Anion Gap (3-11) BUN (7-18) mg/dl Creatinine (0.6-1.2) mg/dl Est Cr Clr Drug Dosing ml/min Est GFR ( Amer) Est GFR (Non-Af Amer) BUN/Creatinine Ratio (10-20) Glucose (70-99) mg/dl Lactate (0.4-2.0) mmol/L Calcium (8.5-10.1) mg/dl Magnesium (1.8-2.4) mg/dl Total Bilirubin (0.2-1) mg/dl AST (15-37) U/L ALT (12-78) U/L Alkaline Phosphatase (45-117) U/L C-Reactive Protein (0-0.29) mg/dl Total Protein (6.4-8.2) gm/dl Albumin (3.4-5.0) gm/dl Globulin (2.5-4.0) gm/dl Albumin/Globulin Ratio (0.9-2) Lipase (73-393) U/L Urine Color Dark Yellow Urine Appearance Cloudy A (Clear) Urine pH 5.5 (4.5-7.5) Ur Specific [place] 1.029 (1.000-1.030) Urine Protein Trace H (Negative) Urine Glucose (UA) Negative (Negative) Urine Ketones Trace H (Negative) Urine Blood Negative (Negative) Urine Nitrite Negative (Negative) Urine Bilirubin Negative (Negative) Urine Urobilinogen Negative (Negative) Ur Leukocyte Esterase Negative (Negative) Urine WBC (Auto) 1-5 (0-5) /hpf Urine RBC (Auto) 5-10 H (0-4) /hpf U Hyaline Cast (Auto) 10-30 H (0-5) /lpf U Epithel Cells (Auto) >30 H (0-5) /lpf Urine Bacteria (Auto) Negative (Negative) Urine Test (Negative) Stl C. diff Tox B Gene (Neg) CMV Specimen Source Pending CMV Qnt PCR IU/mL Pending CMV Qnt PCR log IU/mL Pending 04/02/19 04/02/19 Range/Units 13:26 13:26 WBC 15.18 H (4.8-10.8) K/uL RBC 3.67 L (4.2-5.4) M/uL Hgb 9.6 L (12.0-16.0) g/dL Hct 30.1 L (37-47) % MCV 82.0 (80-100) fL MCH 26.2 (25-34) pg MCHC 31.9 L (32-36) g/dL RDW Std Deviation 44.5 (36.4-46.3) fL RDW Coeff of [place] 14.8 H (11.5-14.5) % Plt Count 369 (130-400) K/uL MPV 8.7 (7.4-10.4) fL Immature Gran % (Auto) 0.4 % Neut % (Auto) 43.2 % Lymph % (Auto) 40.4 % [place] % (Auto) 12.3 % Eos % (Auto) 3.4 % Baso % (Auto) 0.3 % Immature Gran # (Auto) 0.06 H (0.00-0.02) K/uL Neut # (Auto) 6.57 H (1.4-6.5) K/uL Lymph # (Auto) 6.13 H (1.2-3.4) K/uL [place] # (Auto) 1.86 H (0.11-0.59) K/uL Eos # (Auto) 0.52 H (0-0.5) K/uL Baso # (Auto) 0.04 (0-0.2) K/uL ESR (0-21) mm/hr Sodium 135 L (136-145) mmol/L Potassium 3.4 L (3.5-5.1) mmol/L Chloride 106 (98-107) mmol/L Carbon Dioxide 26 (21-32) mmol/L Anion Gap 3.0 (3-11) BUN 7 (7-18) mg/dl Creatinine 0.91 (0.6-1.2) mg/dl Est Cr Clr Drug Dosing 108.8 ml/min Est GFR ( Amer) 106.0 Est GFR (Non-Af Amer) 91.5 BUN/Creatinine Ratio 7.3 L (10-20) Glucose 88 (70-99) mg/dl Lactate (0.4-2.0) mmol/L Calcium 8.8 (8.5-10.1) mg/dl Magnesium (1.8-2.4) mg/dl Total Bilirubin 0.3 (0.2-1) mg/dl AST 18 (15-37) U/L ALT 29 (12-78) U/L Alkaline Phosphatase 89 (45-117) U/L C-Reactive Protein (0-0.29) mg/dl Total Protein 8.6 H (6.4-8.2) gm/dl Albumin 2.8 L (3.4-5.0) gm/dl Globulin 5.8 H (2.5-4.0) gm/dl Albumin/Globulin Ratio 0.5 L (0.9-2) Lipase 70 L (73-393) U/L Urine Color Urine Appearance (Clear) Urine pH (4.5-7.5) Ur Specific [place] (1.000-1.030) Urine Protein (Negative) Urine Glucose (UA) (Negative) Urine Ketones (Negative) Urine Blood (Negative) Urine Nitrite (Negative) Urine Bilirubin (Negative) Urine Urobilinogen (Negative) Ur Leukocyte Esterase (Negative) Urine WBC (Auto) (0-5) /hpf Urine RBC (Auto) (0-4) /hpf U Hyaline Cast (Auto) (0-5) /lpf U Epithel Cells (Auto) (0-5) /lpf Urine Bacteria (Auto) (Negative) Urine Test (Negative) Stl C. diff Tox B Gene (Neg) CMV Specimen Source CMV Qnt PCR IU/mL CMV Qnt PCR log IU/mL Diagnostic Findings CTAP with IV contrast CT abd pelvis IV con only CT DOSE: 443.17 mGy.cm HISTORY: Pain lower abd pain, diarrhea, UC hx TECHNIQUE: Multiaxial CT images of the abdomen and pelvis were performed following the use of intravenous contrast. A dose lowering technique was utilized adhering to the principles of ALARA. COMPARISON STUDY: 02/18/2018 FINDINGS: Lung bases are clear. Liver spleen and pancreas appear unremarkable. Several very small gallstones. Wall thickening and edematous change of the descending and sigmoid colonic regions. Minimal pericolonic infiltrative change. No evidence for abscess collection or obstruction. Bowel pattern otherwise is nonobstructive. Bladder is midline. IMPRESSION: 1. Findings consistent with colitis involving the descending and sigmoid colonic regions. 2. Trace pericolonic infiltrative change, with no evidence for abscess or collection. 3. Several very small gallstones.
[2019-04-04] MEDS ORDERED: Nursing to Pharmacy Communication ONE (00:53)
[2019-04-04] MEDS: SODIUM CHLORIDE 0.9% 1000ML 1,000 ML IV SCH ×3 (05:10→21:15)
[2019-04-04] MEDS: PIPERACILLIN/TAZOBACTAM 3.375 GM in DEXTROSE 5% 100 ML IV SCH ×2 (05:10→13:10)
[2019-04-04 07:12] LABS: Hematocrit (blood only) 26.6 % (37-47); Hemoglobin 8.3 g/dL (12.0-16.0); Mean Corpuscular Hemoglobin 25.7 pg (25-34); Mean Corpuscular Hgb Conc 31.2 g/dL (32-36); Mean Corpuscular Volume 82.4 fL (80-100); Mean Platelet Volume 8.2 fL (7.4-10.4); Platelet Count 278 K/uL (130-400); RDW Coefficient of Variation 14.9 % (11.5-14.5); RDW Standard Deviation 45.1 fL (36.4-46.3); Red Blood Count 3.23 M/uL (4.2-5.4); White Blood Count 10.49 K/uL (4.8-10.8)
--- NOTE | 2019-04-04 07:20 | Hospitalist Progress Note ---
Date of Service April 04, 2019 Assessment & Plan (1) Fever: (2) Ulcerative colitis: SIRS criteria met on admission, poss. d/t UC flair Concern for Sepsis due to possible infectious colitis in the setting of UC- recent h/o CMV infection Pt is 18 y/o F with PMH ulcerative colitis presented with c/o abdominal pain, bloody diarrhea x 11 days. Reported fever 101F x 3 days. In ER T: 38.4C, P: 108, R: 18, BP: 108/62. WBC: 15, H/H: 9.6/30 (baseline Hgb ~10-11), Na: 135, K: 3.4, Lactate: 0.6, ESR: 65, CRP: 8.9 CT ABD/PELVIS:Findings consistent with colitis involving the descending and sigmoid colonic regions. Trace pericolonic infiltrative change, with no evidence for abscess or collection. Several very small gallstones. -In ER given 2L NSS, Zosyn, Zofran, Acetaminophen -Blood culture - pending, urine culture - pinpoint growth? / pending final results GI consulted -C-diff - negative -received 1 dose of IV solumedrol for UC flair by GI, will cont. - stool cultures pending -CMV pending -clear liquid diet,IVF - will advance diet -cont. Zosyn, ID consulted for recent h/o of CMV -GI consult - stool studies, clear liquid diet, ID consult for h/o CMV -monitor CBC, BMP Anemia - acute on chronic anemia - acute blood loss d/t UC flair/ poss. inf. colitis - currently stable - hx of chronic anemia (likely d/t chronic disease), baseline Hgb ~10 - cont. to monitor (3) Hypokalemia: K: 3.4 -Replace and monitor -BMP and magnesium labs in am DVT Prophylaxis -Low risk - Ambulate Subjective Patient sitting up in bed, in no acute distress, says she had a good night, did not have any BMs overnight. (last one before she went to bed around 10 PM, and then she had one this AM). Says stools are less watery but not formed yet, no blood in last two. Denies any chest pain, shortness of breath, nausea or vomiting. Abd. pain is improved but she still has dry cough. No fever or chills anymore. Review of Systems Constitutional: no fever and no chills Respiratory: + cough (dry); no dyspnea Gastrointestinal: + abdominal pain (improved), + bloating (improved) and + diarrhea/loose stools (improved); no nausea, no vomiting and no blood in stools Physical Exam Physical Exam: General: Young female sitting up in bed, in no acute distress, WDWN Head: normocephalic, atraumatic Eyes: PERRL, EOM's intact, conjunctiva non-injected, anicteric ENT: normal inspection external ears, nose, mucous membranes mildly dry Neck: supple, trachea midline, non-tender Lungs: clear, no respiratory distress, no wheezing/rhonchi/rales CV: RRR, no murmur, no pretibial edema Abd: normal BS, soft, +tender to palpation LLQ, RLQ (improved), nondistended Ext: no cyanosis, no calf tenderness, moves extremities spontaneously Neuro: A&O x 3, no focal deficits noted, normal affect, no facial asymmetry, speech fluent, moves extremities spontaneously Skin: warm, dry Results & Data Vital Signs (Past 12 Hours) Vital Signs Temp Pulse Resp BP Pulse Ox 04/03/19 23:52 36.5 C 76 18 100/67 98 Laboratory Results 04/04/19 04/04/19 Range/Units 06:52 06:52 WBC 10.49 (4.8-10.8) K/uL RBC 3.23 L (4.2-5.4) M/uL Hgb 8.3 L (12.0-16.0) g/dL Hct 26.6 L (37-47) % MCV 82.4 (80-100) fL MCH 25.7 (25-34) pg MCHC 31.2 L (32-36) g/dL RDW Std Deviation 45.1 (36.4-46.3) fL RDW Coeff of [place] 14.9 H (11.5-14.5) % Plt Count 278 (130-400) K/uL MPV 8.2 (7.4-10.4) fL Sodium 141 (136-145) mmol/L Potassium 3.8 (3.5-5.1) mmol/L Chloride 114 H (98-107) mmol/L Carbon Dioxide 23 (21-32) mmol/L Anion Gap 4.0 (3-11) BUN 4 L (7-18) mg/dl Creatinine 0.69 (0.6-1.2) mg/dl Est Cr Clr Drug Dosing 143.5 ml/min Est GFR ( Amer) 146.3 Est GFR (Non-Af Amer) 126.2 BUN/Creatinine Ratio 5.2 L (10-20) Glucose 86 (70-99) mg/dl Calcium 8.2 L (8.5-10.1) mg/dl Magnesium 2.0 (1.8-2.4) mg/dl Medications Administered Current Inpatient Medications Sodium Chloride (Nss 1000ml) 1,000 mls @ 125 mls/hr IV .Q8H ILEANA Stop: 05/02/19 18:13 Last Admin: 04/04/19 05:10 Dose: 125 mls/hr Documented by: Piperacillin Sod/Tazobactam (Sod 3.375 gm/ Dextrose) 115 mls @ 28.75 mls/hr IV Q8H ILEANA; Protocol Stop: 04/12/19 21:59 Last Admin: 04/04/19 05:10 Dose: 28.8 mls/hr Documented by: Acetaminophen (Ofirmev) 1,000 mg in 100 mls @ 400 mls/hr IV Q8H PRN PRN Reason: Fever Stop: 04/05/19 23:09 Last Infusion: 04/03/19 19:05 Dose: Infused Documented by: Miscellaneous Information (Consult) 1 ea N/A UD PRN PRN Reason: Consult Stop: 05/02/19 18:25 Ondansetron HCl (Zofran) 4 mg IV Q6H PRN PRN Reason: Nausea Stop: 05/02/19 18:13
[2019-04-04 07:42] LABS: BUN Creatinine Ratio 5.2 (10-20); Calcium 8.2 mg/dl (8.5-10.1); Creatinine Clr Calc Pharmacy 143.5 ml/min; Est GFR (African American) 146.3; Est GFR (Non-African American) 126.2; Potassium 3.8 mmol/L (3.5-5.1)
--- NOTE | 2019-04-04 08:14 | Gastroenterology Progress Note ---
Date of Service April 04, 2019 Assessment & Plan (1) Ulcerative colitis: 18 y/o female with h/o UC, recent CMV infection, admitted yesterday with abd pain, bloody diarrhea, leukocytosis concerning for sepsis; CT findings with colitis involving the descending and sigmoid colitis. Overnight has done well; abd pain, BMs improving; no fever this AM. No n/v. Labs reviewed - WBC improved. - C. diff negative, likely UC flare given interruption in immunosuppressive tx - Continue IV steroids with Solu-medrol 40 mg daily - Continue supportive care with IVF, analgesia PRN - Trend CBC, BMP - Can advance diet today as tolerated - ABX coverage as per primary service, await BC - Await CMV results as per infectious disease (2) Colitis: (3) History of cytomegalovirus infection: - As per ID recommendations, pt states to me she feels like she did when she had active CMV Supervising Physician Co-Signing Physician Notes I have seen and examined the patient with Ginette George PA-C whose note reflects our findings and plan. Improving on IV steroids. ID input appreciated. At time of discharge patient will need a long slow oral steroid taper and to continue mgt per ID. Subjective Pt seen and examined this AM; doing much better overnight. Abd pain is much improved and currently minimal. BMs have slowed down considerably; slept well overnight. No n/v; feeling hungry. No fever this AM. Tolerating IV steroids. CMV labs are pending. Review of Systems Constitutional: no fever, no chills and no anorexia Cardiovascular: no chest pain, no dyspnea and no edema Gastrointestinal: as per Subjective / HPI Musculoskeletal: no swelling and no myalgia Integumentary: no rash and no lesions Physical Exam Constitutional: WD/WN, vitals as above Eyes: + anicteric sclerae Respiratory: normal respiratory effort, lungs clear to auscultation Cardiovascular: RRR, no murmur, no edema Gastrointestinal (Abdomen): Inspection/Auscultation: abdomen normal to inspection; abdomen not distended Percussion/Palpation: abdomen soft; abdomen nontender and no guarding Skin: no rashes, warm and dry Psychiatric: A+Ox3, euthymic affect Results & Data Vital Signs (Past 12 Hours) Vital Signs Temp Pulse Resp BP Pulse Ox 04/04/19 07:00 36.9 C 84 16 106/69 97 04/03/19 23:52 36.5 C 76 18 100/67 98 Laboratory Results 04/04/19 04/04/19 Range/Units 06:52 06:52 WBC 10.49 (4.8-10.8) K/uL RBC 3.23 L (4.2-5.4) M/uL Hgb 8.3 L (12.0-16.0) g/dL Hct 26.6 L (37-47) % MCV 82.4 (80-100) fL MCH 25.7 (25-34) pg MCHC 31.2 L (32-36) g/dL RDW Std Deviation 45.1 (36.4-46.3) fL RDW Coeff of [place] 14.9 H (11.5-14.5) % Plt Count 278 (130-400) K/uL MPV 8.2 (7.4-10.4) fL Sodium 141 (136-145) mmol/L Potassium 3.8 (3.5-5.1) mmol/L Chloride 114 H (98-107) mmol/L Carbon Dioxide 23 (21-32) mmol/L Anion Gap 4.0 (3-11) BUN 4 L (7-18) mg/dl Creatinine 0.69 (0.6-1.2) mg/dl Est Cr Clr Drug Dosing 143.5 ml/min Est GFR ( Amer) 146.3 Est GFR (Non-Af Amer) 126.2 BUN/Creatinine Ratio 5.2 L (10-20) Glucose 86 (70-99) mg/dl Calcium 8.2 L (8.5-10.1) mg/dl Magnesium 2.0 (1.8-2.4) mg/dl
[2019-04-04] MEDS ORDERED: methylPREDNISolone 40 MG in SYRINGE 0 ML IV STA (10:40)
--- NOTE | 2019-04-04 12:57 | Infectious Disease Progress Nt ---
Date of Service April 04, 2019 Assessment & Plan (1) Colitis: DDX: UC flare, GI translocation, bacerial colitis, CMV - has been off of suppressive antiviral. cultures negative, afebrile wbc improved, would follow off of zosyn. suspect UC flare. would suggest restarting ganciclovir pending CMV quant, if negative would then place back on valganciclovir 900mg daily. She should have routine f/u with ID - currently following with C post d/c. Subjective pt remains on zosyn, s/p GI eval, started on steroids and much improved today afebrile blood culture negative stool cultue negative. cmv pending, on no cmv treatment currently wbc improved to 10. Results & Data Vital Signs (Past 12 Hours) Vital Signs Temp Pulse Resp BP Pulse Ox 04/04/19 07:00 36.9 C 84 16 106/69 97 Laboratory Results Microbiology 04/02/19 23:55 Stool Escherichia coli Shiga Toxins Test - Preliminary 04/02/19 23:55 Stool Stool Culture - Preliminary No Salmonella isolated to date, No Shigella isolated to date, No Campylobacter jejuni isolated to date. 04/02/19 13:29 Urine,Clean Catch Urine Culture - Final Lactobacillus species 04/02/19 23:31 Blood Aerobic Blood Culture - Preliminary No growth in Aerobic bottle after 24 hours. 04/02/19 23:31 Blood Anaerobic Blood Culture - Preliminary No growth in Anaerobic bottle after 24 hours. 04/02/19 23:22 Blood Aerobic Blood Culture - Preliminary No growth in Aerobic bottle after 24 hours. 04/02/19 23:22 Blood Anaerobic Blood Culture - Preliminary No growth in Anaerobic bottle after 24 hours. 04/02/19 14:35 Blood Aerobic Blood Culture - Preliminary No growth in Aerobic bottle after 24 hours. 04/02/19 14:35 Blood Anaerobic Blood Culture - Preliminary No growth in Anaerobic bottle after 24 hours. 04/02/19 14:34 Blood Aerobic Blood Culture - Preliminary No growth in Aerobic bottle after 24 hours. 04/02/19 14:34 Blood Anaerobic Blood Culture - Preliminary No growth in Anaerobic bottle after 24 hours. PG Care Time/CCT Total # of Minutes Spent Total Time Spent with Patient: Total time spent is greater than 50% in coordination of care (as documented) at patient's floor/unit and/or counseling patient:
[2019-04-05] MEDS: SODIUM CHLORIDE 0.9% 1000ML 1,000 ML IV SCH ×3 (05:08→21:30)
[2019-04-05 06:06] LABS: Hematocrit (blood only) 24.9 % (37-47); Hemoglobin 7.8 g/dL (12.0-16.0); Mean Corpuscular Hgb Conc 31.3 g/dL (32-36); Mean Platelet Volume 8.3 fL (7.4-10.4); Platelet Count 341 K/uL (130-400); RDW Coefficient of Variation 15.1 % (11.5-14.5); RDW Standard Deviation 45.7 fL (36.4-46.3); White Blood Count 12.28 K/uL (4.8-10.8)
[2019-04-05 06:36] LABS: BUN Creatinine Ratio 4.2 (10-20); Calcium 8.2 mg/dl (8.5-10.1); Creatinine Clr Calc Pharmacy 147.8 ml/min; Est GFR (African American) 147.7; Est GFR (Non-African American) 127.4; Potassium 3.6 mmol/L (3.5-5.1)
[2019-04-05] MEDS ORDERED: POTASSIUM CHLORIDE 20 MEQ TABCR PO STA (14:03)
--- NOTE | 2019-04-05 14:03 | Hospitalist Progress Note ---
Date of Service April 05, 2019 Assessment & Plan (1) Fever: (2) Ulcerative colitis: SIRS criteria met on admission, likely secondary to UC flare Concern for Sepsis due to possible infectious colitis in the setting of UC- recent h/o CMV infection Pt is 18 y/o F with PMH ulcerative colitis presented with c/o abdominal pain, bloody diarrhea x 11 days. Reported fever 101F x 3 days. In ER T: 38.4C, P: 108, R: 18, BP: 108/62. WBC: 15, H/H: 9.6/30 (baseline Hgb ~10-11), Na: 135, K: 3.4, Lactate: 0.6, ESR: 65, CRP: 8.9 CT ABD/PELVIS:Findings consistent with colitis involving the descending and sigmoid colonic regions. Trace pericolonic infiltrative change, with no evidence for abscess or collection. Several very small gallstones. -In ER given 2L NSS, Zosyn, Zofran, Acetaminophen -Blood culture - pending, urine culture - pinpoint growth? / pending final results GI consulted -C-diff - negative -received IV solumedrol 40 x2 for UC flair by GI, will decrease to 20 today - stool cultures pending -CMV pending -clear liquid diet,IVF - advanced diet to low residual - stopped Zosyn, ID consulted for recent h/o of CMV -GI consult - stool studies pending, decrease solumedrol -monitor CBC, BMP Anemia - acute on chronic anemia - acute blood loss d/t UC flare/ poss. inf. colitis - currently stable - hx of chronic anemia (likely d/t chronic disease), baseline Hgb ~10 - cont. to monitor (3) Hypokalemia: K: 3.4 -Replace and monitor -BMP and magnesium labs in am DVT Prophylaxis -Low risk - Ambulate Subjective Patient sitting up in bed, in no acute distress, comfortable. Zosyn was stopped, patient remains afebrile, clinically much improved, plan to decrease IV Solu-Medrol. Review of Systems Review of Systems: All systems reviewed & are unremarkable except as noted in HPI & below Constitutional: no fever and no chills Respiratory: + cough (improved); no dyspnea Cardiovascular: no chest pain, no palpitations and no edema Gastrointestinal: + abdominal pain (improved), + bloating (improved), + diarrhea/loose stools (improved) and + blood in stools (improved); no nausea and no vomiting Physical Exam Physical Exam: General: Young female sitting up in bed, in no acute distress, WDWN Head: normocephalic, atraumatic Eyes: PERRL, EOM's intact, conjunctiva non-injected, anicteric ENT: normal inspection external ears, nose, mucous membranes mildly dry Neck: supple, trachea midline, non-tender Lungs: clear, no respiratory distress, no wheezing/rhonchi/rales CV: RRR, no murmur, no pretibial edema Abd: normal BS, soft, +mild tenderness to palpation LLQ, RLQ (improved), nondistended Ext: no cyanosis, no calf tenderness, moves extremities spontaneously Neuro: A&O x 3, no focal deficits noted, normal affect, no facial asymmetry, speech fluent, moves extremities spontaneously Skin: warm, dry Results & Data Vital Signs (Past 12 Hours) Vital Signs Temp Pulse Resp BP Pulse Ox 04/05/19 07:13 36.9 C 84 17 107/69 95 Laboratory Results 04/05/19 04/05/19 Range/Units 05:33 05:33 WBC 12.28 H (4.8-10.8) K/uL RBC 3.00 L (4.2-5.4) M/uL Hgb 7.8 L (12.0-16.0) g/dL Hct 24.9 L (37-47) % MCV 83.0 (80-100) fL MCH 26.0 (25-34) pg MCHC 31.3 L (32-36) g/dL RDW Std Deviation 45.7 (36.4-46.3) fL RDW Coeff of [place] 15.1 H (11.5-14.5) % Plt Count 341 (130-400) K/uL MPV 8.3 (7.4-10.4) fL Sodium 142 (136-145) mmol/L Potassium 3.6 (3.5-5.1) mmol/L Chloride 114 H (98-107) mmol/L Carbon Dioxide 25 (21-32) mmol/L Anion Gap 3.0 (3-11) BUN 3 L (7-18) mg/dl Creatinine 0.67 (0.6-1.2) mg/dl Est Cr Clr Drug Dosing 147.8 ml/min Est GFR ( Amer) 147.7 Est GFR (Non-Af Amer) 127.4 BUN/Creatinine Ratio 4.2 L (10-20) Glucose 89 (70-99) mg/dl Calcium 8.2 L (8.5-10.1) mg/dl Magnesium 2.0 (1.8-2.4) mg/dl Medications Administered Current Inpatient Medications Sodium Chloride (Nss 1000ml) 1,000 mls @ 125 mls/hr IV .Q8H ILEANA Stop: 05/02/19 18:13 Last Admin: 04/05/19 12:53 Dose: 125 mls/hr Documented by: Acetaminophen (Ofirmev) 1,000 mg in 100 mls @ 400 mls/hr IV Q8H PRN PRN Reason: Fever Stop: 04/05/19 23:09 Last Infusion: 04/03/19 19:05 Dose: Infused Documented by: Methylprednisolone 20 mg/ (Syringe) 0.32 mls @ 1.5 mls/min IV Q12 ILEANA Stop: 05/05/19 13:29 Ondansetron HCl (Zofran) 4 mg IV Q6H PRN PRN Reason: Nausea Stop: 05/02/19 18:13
[2019-04-05] MEDS: methylPREDNISolone 20 MG in SYRINGE 0 ML IV SCH ×2 (14:33→19:59)
--- NOTE | 2019-04-05 15:04 | Gastroenterology Progress Note ---
Date of Service April 05, 2019 Subjective Cont to improve. Feeling "about 70% better." Denies abd pain, BM x2 s blood a nd with improved consistency, woodrow PO well. On exam, appears comfortable. When I walk into the room, she is chatting and laughing with friends. Abd: soft NT ND A/P: IBD flare H/o CMV colitis - She appears to have had a vigorous response to IV steroids. Plan for d/c home tomorrow on 40 mg of prednisone, low resi diet with outpt f/u. - Regarding possibility of CMV infection -- Although it can be difficult to distinguish between CMV reactivation and IBD flare, her response to steroids suggests that this is not CMV reactivation. Of note, serum testing for CMV is not clearly diagnostic of CMV colitis. For now, given her well appearance and response to steroids, I would favor deferring resuming empiric Valcyte prophylaxis. If she has a relapse in her symptoms, would consider re-scoping fo r tissue evidence of CMV infection. It is not necessary to await the results of CMV testing prior to discharge. I discussed this plan with ID service/Dr. Trujillo, who was in agreement. Results & Data Vital Signs (Past 12 Hours) Vital Signs Temp Pulse Resp BP Pulse Ox 04/05/19 07:13 36.9 C 84 17 107/69 95
[2019-04-06] MEDS: SODIUM CHLORIDE 0.9% 1000ML 1,000 ML IV SCH (05:31)
[2019-04-06 06:18] LABS: Hematocrit (blood only) 27.2 % (37-47); Hemoglobin 8.7 g/dL (12.0-16.0); Mean Corpuscular Hemoglobin 26.5 pg (25-34); Mean Corpuscular Volume 82.9 fL (80-100); Mean Platelet Volume 8.2 fL (7.4-10.4); Platelet Count 344 K/uL (130-400); RDW Standard Deviation 45.7 fL (36.4-46.3); Red Blood Count 3.28 M/uL (4.2-5.4); White Blood Count 9.82 K/uL (4.8-10.8)
[2019-04-06 06:48] LABS: BUN Creatinine Ratio 8.3 (10-20); Blood Urea Nitrogen 5 mg/dl (7-18); Calcium 8.8 mg/dl (8.5-10.1); Carbon Dioxide 25 mmol/L (21-32); Chloride 111 mmol/L (98-107); Est GFR (African American) > 150.0; Glucose 111 mg/dl (70-99); Potassium 4.1 mmol/L (3.5-5.1); Sodium 140 mmol/L (136-145)
[2019-04-06] MEDS: methylPREDNISolone 20 MG in SYRINGE 0 ML IV SCH (09:41)
--- NOTE | 2019-04-06 11:13 | Discharge Summary ---
Date of Service April 06, 2019 Admission HPI Per Admitting Provider Pt is 18 y/o F with PMH ulcerative colitis presented to ER with c/o abdominal pain, diarrhea x 11 days. Pt states was having 10-15 episodes diarrhea daily with approx 3 episodes with red bloody stools. Also with lower abdominal cramping. Reports initially thought was ulcerative colitis flare however started with fever on 03/30/19 of 101F and fever has persisted. Past several days with 5- 6 episodes of diarrhea daily with some hematochezia continuing. States some rectal pain at end of having BM's. Has had decreased appetite and decreased oral intake past several days. Traveled to [place] couple of weeks ago. History hospitalization in 09/2018 for fever, rectal bleeding and was admitted at [facility] and diagnosed with CMV, pneumonia and possible tick borne illness. Reports was treated with doxycycline and IV Gancyclovir x 4 weeks then transitioned to oral valganciclovir. Imuran was discontinued at that time. Had followed with Dr Glo CHAIDEZ locally also. Her CMV load was undetectable and pt started on Humira recently. Reports started Humira and reports 3rd dose was on 03/22/19. Denies ill contacts. Denies recent antibiotic use, eating undercooked foods, drinking well water. Denies diaphoresis, N/V, GARAY, dizziness, syncope, vision changes, neck pain, CP, SOB, orthopnea, palpitations, cough, sore throat, choking, otalgia, rhinorrhea, paresthesias, weakness, extremity weakness, extremity edema, rashes, urinary symptoms. Admission Exam Per Admitting Provider General: no acute distress, WDWN Head: normocephalic, atraumatic Eyes: PERRL, EOM's intact, conjunctiva non-injected, anicteric ENT: normal inspection external ears, nose, mucous membranes mildly dry Neck: supple, trachea midline, non-tender Lungs: clear, no respiratory distress, no wheezing/rhonchi/rales CV: RRR, no murmur, no pretibial edema Abd: normal BS, soft, +tender to palpation LLQ, RLQ without rebound Ext: no cyanosis, no calf tenderness Neuro: A&O x 3, no focal deficits noted, normal affect Skin: warm, dry Principal Diagnosis Ulcerative colitis flare Discharge Exam General: Young female sitting up in bed, in no acute distress, WDWN Head: normocephalic, atraumatic Eyes: PERRL, EOM's intact, conjunctiva non-injected, anicteric ENT: normal inspection external ears, nose, mucous membranes mildly dry Neck: supple, trachea midline, non-tender Lungs: clear, no respiratory distress, no wheezing/rhonchi/rales CV: RRR, no murmur, no pretibial edema Abd: normal BS, soft, nontender to palpation, nondistended Ext: no cyanosis, no calf tenderness, moves extremities spontaneously Neuro: A&O x 3, no focal deficits noted, normal affect, no facial asymmetry, sp eech fluent, moves extremities spontaneously Skin: warm, dry Discharge Data Allergies Allergy/AdvReac Type Severity Reaction Status Date / Time cinnamon Allergy Mild Itchy Verified 04/02/19 15:15 throat, mouth inflammed oxycodone [From OxyContin] Allergy Unconscious Verified 04/02/19 15:15 Consultations 04/02/19 16:04 ED Decision to Admit Stat 04/02/19 18:14 Consult Gastroenterology Routine 04/03/19 10:40 Consult Infectious Diseases Routine Ordered Studies 04/02/19 14:28 CT abd pelvis IV con only Stat FINDINGS: Lung bases are clear. Liver spleen and pancreas appear unremarkable. Several very small gallstones. Wall thickening and edematous change of the descending and sigmoid colonic regions. Minimal pericolonic infiltrative change. No evidence for abscess collection or obstruction. Bowel pattern otherwise is nonobstructive. Bladder is midline. IMPRESSION: 1. Findings consistent with colitis involving the descending and sigmoid colonic regions. 2. Trace pericolonic infiltrative change, with no evidence for abscess or collection. 3. Several very small gallstones. Hospital Course (1) Fever: (2) Ulcerative colitis: SIRS criteria met on admission, likely secondary to UC flare Initially concern for Sepsis due to possible infectious colitis in the setting of UC- recent h/o CMV infection Pt is 18 y/o F with PMH ulcerative colitis presented with c/o abdominal pain, bloody diarrhea x 11 days. Reported fever 101F x 3 days. In ER T: 38.4C, P: 108, R: 18, BP: 108/62. WBC: 15, H/H: 9.6/30 (baseline Hgb ~10-11), Na: 135, K: 3.4, Lactate: 0.6, ESR: 65, CRP: 8.9 CT ABD/PELVIS: Findings consistent with colitis involving the descending and sigmoid colonic regions. Trace pericolonic infiltrative change, with no evidence for abscess or collection. Several very small gallstones. - In ER given 2L NSS, Zosyn, Zofran, Acetaminophen - Blood culture - NGTD, urine culture - lactobacillus + other mixed monie - C-diff - negative - received IV solumedrol 40 x2 for UC flair by GI, will decrease to 20 mg today - stool cultures pending - CMV pending - clear liquid diet,IVF - advanced diet to low residual, tolerates well - stopped Zosyn, patient remained afebrile, ID consulted for recent h/o of CMV - GI consulted - stool studies pending, decreased IV solumedrol, plan to switch to p.o. prednisone 40 mg and discharge home today, outpatient follow-up - monitor CBC, BMP Anemia - acute on chronic anemia - acute blood loss d/t UC flare/ poss. inf. colitis - currently stable - hx of chronic anemia (likely d/t chronic disease), baseline Hgb ~10 - cont. to monitor (3) Hypokalemia: K: 3.4 -Replace and monitor -BMP and magnesium labs in am DVT Prophylaxis -Low risk - Ambulate Total Time Total Time Spent Total Time Spent (In Minutes): 40 Total Time Includes: Examination of the Patient, Discharge Planning, Medication Reconciliation and Communication With Other Providers Discharge Plan Discharge Items Patient Disposition: Home - Self-Care Reason For Visit: COLITIS Discharge Diagnosis: Ulcerative colitis flare Activity: Resume your previous activity Activity Comment: as tolerated Non-emergency contact: Primary Care Provider and Export Documents Clerk Call non-emergency contact if: you have any medication questions and your symptoms worsen Follow-up/Referrals: Deb Del Cid [Primary Care Provider] - Diet: Low Fiber Diet Comment: Low residue diet Addtl Attending Provider Instructions: Start taking prednisone 40 mg daily, starting tomorrow April 07, 2019. You will need to follow-up with your primary care provider and/or rippler, in 1-2 week. You will then be advised on further prednisone dosage/taper. You should take your next Humira dose as planned. For next several days, have low residual/low fiber diet. If your symptoms worsen, make sure to contact your rippler or primary care provider. Pending Studies at Discharge: Yes Studies:: CMV Stand-Alone Forms: My [facility], Smoking Cessation Medications and DC Order Prescriptions: New prednisone 20 mg tablet 40 mg PO DAILY 14 Days Qty: 28 RF: 0 Continued Humira 40 mg/0.8 mL Syringe Kit 40 mg SUBCUT MONTHLY RF: 0 Discharge Orders: Discharge Order (Routine); Ordered 04/06/19 Ordered By: Matheus Richard Admission Data Admit Date/Time: 04/02/19 16:52 Attending Provider: Matheus Richard Admit Provider: Mathieu Hoyt Primary Care Provider: Deb Del Cid Other Providers: Mathieu Hoyt ; Deb Del Cid ; Kayce Trujillo
[2019-04-07 03:38] LABS: CMV DNA Qnt Real Time PCR <200 IU/mL (<200); CMV DNA Quant PCR <2.30 log IU/mL (<2.30)
== END 2019-04-06 12:43 | disposition home or self-care (01) | DRG 872 ==
LOC: ED 12:25 → 4W 16:52 → SUATTDRO 16:52 → 4W 17:45